=== PATIENT | female | born 1995 | race Two or more races ===

== ENCOUNTER 2024-09-12 16:19 | Inpatient (IN) | payer OTHER ==
[~2024-09-12] VITALS: Ht 167.6 cm; Wt 77.4 kg
--- NOTE | 2024-09-12 16:38 | ED.PDOC ---
GI ASSESSMENT HPI Comments HPI: Poor Historian. 28y F who presents to the ED for chief complaint of abdominal pain. Pt states she started having diffuse abdominal pain 1 days prior after she ate burrito. Pt states the pain is dull, constant, with no associated exacerbating or relieving factors. Pt otherwise denies any associated symptoms. Pt denies any other symptoms at this time. Vitals: temp: 98.0 RR: 16 02 sat: 100% on RA heart rate: 89 BP: 112/32 PMH: denies PSH: , tummy tuck social history: denies tobacco use, denies ETOH use, denies drug use medications: unknown allergies: nkda REVIEW OF SYSTEMS: CONSTITUTIONAL: Denies acute: fever, diaphoresis, chills, generalized weakness. HEAD: Denies acute: headache, photophobia Eyes: Denies acute: Double vision, vision loss, eye pain, eye discharge. EARS: Denies acute: tinnitus, hearing loss, ear discharge, ear pain, THROAT: Denies acute: sore throat, swelling, difficulty swallowing , pain with sw allowing, change in voice. NECK: Denies acute: neck pain, neck swelling, stiff neck. HEART: Denies acute : chest pain, palpitations, LUNGS: Denies acute: SOB, wheezing, cough, hemoptysis ABDOMEN: Denies acute: , Nausea, Vomiting, diarrhea, melena , hematemesis, hematochezia SKIN: Denies acute: rash, redness, lesions, itchiness. EXTREMITIES: Denies acute: calf pain, numbness, tingling, weakness, denies pain in extremity. Denies acute: Low back pain. Neuro: Denies acute: focal neurological deficit, motor or sensory focal neurological deficit, tremors, seizure like activity, confusion, dizziness, change in mental status, loss of bowel or bladder function, cauda equina like symptoms. : Denies acute: dysuria, hematuria, flank pain, increase in urinary frequency. PSYCH: Denies acute: hallucination, suicidal ideation, homicidal ideation. FEMALE: Denies acute: abnormal vaginal bleeding, foul odor, unusual discharge. PHYSICAL EXAM: General: no acute distress, awake and alert. Head: normocephalic, atraumatic. Neck: supple, trachea is midline, no swelling. Throat: Normal phonation. Eyes:, no erythema, no purulent discharge, no proptosis, no icterus. Heart: regular rate, regular rhythm, no significant murmur appreciated. Lungs: no apparent respiratory distress, Able to speak in full sentences. No wheezing, no rhonchi, no crackles. No stridors Clear to auscultation bilaterally. Abdomen: Periumbilical tender to palpation, non distended, soft, no guarding, no rebound, + bowel sounds. Neuro: Awake, Alert, oriented to name, self, situation, follows commands GCS=15. Speech is normal. Skin: no petechia, no purpura, no cyanosis, non-pale, not jaundice. Lower extremities: --no - Pitting edema no deformity, no focal swelling, no calf TTP. Makes eye contact. moves all four extremities. Face: no apparent facial droop. No CVA tenderness to percussion bilaterally. Ambulating in the ED independently. No nuchal rigidity, Kernig's sign, Brudzinski's sign, no meningeal signs. 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 Was a procedure done?: No GI differential Dx Differential Diagnosis: Other (DDX include Diverticulitis, colitis, gastroenteritis, acute abdomen, SBO, enteritis, constipation, volvulus, appendicitis, Gallbladder disease, choledocolithiasis, ascending cholangitis, pancreatitis, intraAbdominal mass/neoplasm, hepatitis, UTI, pylonephritis, kidney stone, aneurysm, dissection, Inflammatory bowel disease, gastroparesis, ischemic bowel, ovarian torsion, ovarian cyst/mass, tubo-ovarian abscess, , ectopic , PID, STD.) X-Ray, Labs, Meds, VS Vital Signs Date Time Temp Pulse Resp B/P (MAP) Pulse Ox O2 Delivery O2 Flow Rate FiO2 09/12/24 20:36 98.1 82 16 124/50 (74) 98 98.1 09/12/24 16:40 98.0 89 16 112/32 (58) 100 Lab Test 09/12/24 17:02 09/12/24 17:01 09/12/24 16:49 Range/Units Lactic Acid Level 1.2 0.4-2.0 mmol/L White Blood Count 13.9 H 4.4-10.8 10^3/uL Red Blood Count 4.49 4.0-5.20 10^6/uL Hemoglobin 14.2 12.2-16.2 g/dL Hematocrit 40.7 36.0-46.0 % Mean Corpuscular Volume 90.5 80.0-100.0 fL Mean Corpuscular Hemoglobin 31.6 28.0-32.0 pg Mean Corpuscular Hemoglobin Concent 34.9 32.0-36.0 g/dL Red Cell Distribution Width 12.6 11.8-14.3 % Platelet Count 292 140-450 10^3/uL Mean Platelet Volume 8.2 6.9-10.8 fL Neutrophils (%) (Auto) 72.3 37.0-80.0 % Lymphocytes (%) (Auto) 18.8 10.0-50.0 % Monocytes (%) (Auto) 6.5 0.0-12.0 % Eosinophils (%) (Auto) 1.7 0.0-7.0 % Basophils (%) (Auto) 0.7 0.0-2.0 % Neutrophils # (Auto) 10.0 H 1.6-8.6 10 ^3/uL Lymphocytes # (Auto) 2.6 0.4-5.4 10 ^3/uL Monocytes # (Auto) 0.9 0-1.3 10 ^3/uL Eosinophils # (Auto) 0.2 0-0.8 10 ^3/uL Basophils # (Auto) 0.1 0-0.2 10 ^3/uL Nucleated Red Blood Cells 0.0 % Sodium Level 144 136-145 mmol/L Potassium Level 3.8 3.5-5.1 mmol/L Chloride Level 107 98-107 mmol/L Carbon Dioxide Level 30 20-31 mmol/L Anion Gap 7 5-15 Blood Urea Nitrogen 14 9-23 mg/dL Creatinine 0.93 0.550-1.02 mg/dL Glomerular Filtration Rate Calc 86 >90 mL/min BUN/Creatinine Ratio 15.1 10.0-20.0 Serum Glucose 74 74-106 mg/dL Calcium Level 10.4 8.7-10.4 mg/dL Total Bilirubin 0.9 0.2-1.0 mg/dL Aspartate Amino Transferase (AST) 15 13-40 U/L Alanine Aminotransferase (ALT) 17 7-40 U/L Alkaline Phosphatase 69 46-116 U/L Total Protein 6.8 5.7-8.2 g/dL Albumin 4.6 3.2-4.8 g/dL Lipase 40 12-53 U/L Beta HCG, Quantitative 0.2 L 1.5-4.2 mIU/mL Urine Color Yellow Yellow Urine Clarity Clear Clear Urine pH 5.5 5.0-9.0 Urine Specific [place] 1.041 H 1.001-1.035 Urine Protein 1+ H Negative Urine Ketones Trace Negative Urine Blood Negative Negative /uL Urine Nitrite Negative Negative Urine Bilirubin Negative Negative Urine Urobilinogen Normal Negative mg/dL Urine Leukocyte Esterase Negative Negative /uL Urine RBC 1 0 - 4 /hpf Urine WBC 1 0 - 5 /hpf Urine Squamous Epithelial Cells Few <5 /hpf Urine Bacteria None seen None Seen /hpf Urine Mucus Few None Seen Urine Glucose Normal Normal mg/dL [place] [id number] Ph: [phone] DIAGNOSTIC IMAGING Diagnostic Imaging Report : [id number] Signed PATIENT: ADRIAN CORTEZ ACCT: [id number] UNIT: [id number] : 1995 LOC: ER ROOM / BED: / AGE / SEX: 28 / F ADM STATUS: REG ER SERVICE [id number] ORDERING PHYSICIAN: DANNA MELENDEZ DO PROCEDURE(s): ABPL - CT AB PEL WO CON-NO ORAL OR IV REASON: ABD PAIN ORDER NUMBER(s): [id number], ACCESSION NUMBER(s): [id number] Exam: CT CT AB PEL WO CON-NO ORAL OR IV History: ABD PAIN Comparison Study: None available at time of dictation. TECHNIQUE: Multidetector CT of the abdomen was performed from lung bases to pubic symphysis. Imaging was performed without IV contrast. Axial, coronal and sagittal multiplanar reformats were obtained from the axial data set by the technologist. Radiation Dose Information: CT Dose: CTDI volume is 9.35 mGy. Dose-length product is 502.38 mGy*cm FINDINGS: Evaluation of solid organs is limited due to lack of intravenous contrast use. Findings: Lung Bases: No acute or significant lung base finding. Normal heart size. No pleural or pericardial effusion. Liver: The liver is normal in size. No focal lesions. Gallbladder and Biliary Tree: Unremarkable Spleen: Unremarkable Pancreas: The pancreas is grossly normal in appearance. Adrenal Glands: Unremarkable Kidneys: Kidneys are grossly normal without calculi or hydronephrosis. Bladder: Grossly unremarkable for degree of distention. Bowel: The stomach is grossly normal in appearance. Small bowel and colon are normal in caliber and distribution. Wall thickening of the appendix, which is dilated to 1.0 cm, with periappendiceal inflammatory reaction. Ascites: Absent Lymphadenopathy: No mesenteric, retroperitoneal or periportal lymphadenopathy. Abdominal Wall and Mesentery: Unremarkable. Vasculature: The visualized abdominal aorta is normal in size and caliber. Evaluation of abdominal and pelvic vessels is limited due to lack of intravenous contrast. Pelvic Organs: Cystic structure measuring 2.7 cm in the region of the cervix. Musculoskeletal: No aggressive focal bony lesions, acute fractures or dislocation. Soft tissues: Unremarkable IMPRESSION: 1. Acute appendicitis. No definite large perforation or abscess formation at this time, though evaluation is limited in the absence of IV contrast. 2. Cystic structure measuring 2.7 cm in the region of the cervix, likely nabothian cyst. 3. Radiation optimization: All CT scans at this facility use at least one of these dose optimization techniques: automated exposure control mA and/or kV adj ustment per patient size (includes targeted exams where dose is matched to clinical indication) or iterative reconstruction. HS:Y ATED BY: AJ TREVIÑO DO DICTATED DATE/TIME: 09/12/241826 SIGNED BY: AJ TREVIÑO DO SIGNED DATE/TIME: 09/12/241826 CC: Time of 1ST Reevaluation: 18:56 (The case was discussed with the general surgery team (HPI, physical exam, labs and diagnostic tests that were available at the time of disposition, ED course, treatment plan) on the phone. They agreed to follow the patient in consult. No further recommendations. dr. Haji) Reevaluation 1ST: Improved Consultation: Surgery Patient Education/Counseling: Diagnosis, Treatment Family Education/Counseling: No Family Present Comments Patient presented with the above HPI.---abdominal pain in female---workup was initiated. patient was found with the above mentioned diagnosis. Patient was given: Zosyn, fluids, Patient ED course and VS have been stabilized. Patient has been reassessed in the ED and remained in a stable condition. Pertinent incidental findings were discussed with the patient and/or family. Patient/family voices understanding and is agreeable with plan. Patient has been observed in the ED adequate length of time to insure improvement/stability. General surgery was consulted patient was admitted to the medicine team for further evaluation and treatment of their presentation. All the reports of any imaging studies that were ordered by myself were reviewed by myself. Departure 1 Departure Time of Disposition: 18:33 Impression: Primary Impression: Acute appendicitis Additional Impression: Leukocytosis Disposition: ADMITTED INPATIENT Admit to: Tele Condition: Guarded Discharged With: Self Critical Care Note Critical Care Time?: No I personally scribed for DANNA MELENDEZ DO ([email or web address]) on 09/12/24 at 16:38. Electronically submitted by Victorino Weaver ([email or web address]). I personally scribed for DANNA MELENDEZ DO ([email or web address]) on 09/12/24 at 16:56. Electronically submitted by Victorino Weaver ([email or web address]). I personally scribed for DANNA MELENDEZ DO ([email or web address]) on 09/12/24 at 18:59. Electronically submitted by Victorino Weaver ([employer]). DANNA MELENDEZ DO Sep 12, 2024 16:38
[2024-09-12 16:51] LABS: Urine Bacteria None Seen /hpf (None Seen)
[2024-09-12 17:12] LABS: Urine Blood Negative /uL (Negative); Urine Clarity Clear (Clear); Urine Color Yellow (Yellow); Urine Mucus FEW (None Seen); Urine Protein, UAD 1+ (Negative); Urine Specific Gravity 1.041 (1.001-1.035); Urine Urobilinogen Normal (Negative); Urine WBC 1 /hpf (0 - 5); Urine pH 5.5 (5.0-9.0)
[2024-09-12 17:28] LABS: Basophils # (auto) 0.1 10 ^3/uL (0-0.2); Basophils % (auto) 0.7 % (0.0-2.0); Eosinophils # (auto) 0.2 10 ^3/uL (0-0.8); Eosinophils % (auto) 1.7 % (0.0-7.0); Hematocrit 40.7 % (36.0-46.0); Hemoglobin 14.2 g/dL (12.2-16.2); Lymphocytes # (auto) 2.6 10 ^3/uL (0.4-5.4); Lymphocytes % (auto) 18.8 % (10.0-50.0); Mean Corpuscular Hemoglobin 31.6 pg (28.0-32.0); Mean Corpuscular Hgb Conc. 34.9 g/dL (32.0-36.0); Mean Corpuscular Volume 90.5 fL (80.0-100.0); Monocytes # (auto) 0.9 10 ^3/uL (0-1.3); Monocytes % (auto) 6.5 % (0.0-12.0); Neutrophils % (auto) 72.3 % (37.0-80.0); Platelet Count (auto) 292 10^3/uL (140-450); Red Blood Cells 4.49 10^6/uL (4.0-5.20); Red Cell Distribution Width 12.6 % (11.8-14.3); White Blood Cell 13.9 10^3/uL (4.4-10.8)
[2024-09-12 17:41] LABS: Alanine Aminotransferase 17 U/L (7-40); Albumin 4.6 g/dL (3.2-4.8); Alkaline Phosphatase 69 U/L (46-116); Anion Gap 7 (5-15); Aspartate Aminotransferase 15 U/L (13-40); BUN/Creatinine Ratio 15.1 (10.0-20.0); Blood Urea Nitrogen 14 mg/dL (9-23); Calcium 10.4 mg/dL (8.7-10.4); Carbon Dioxide 30 mmol/L (20-31); Chloride 107 mmol/L (98-107); Glucose 74 mg/dL (74-106); Lipase 40 U/L (12-53); Potassium 3.8 mmol/L (3.5-5.1); Sodium 144 mmol/L (136-145)
[2024-09-12 17:42] LABS: Bilirubin, Total 0.9 mg/dL (0.2-1.0); Total Protein 6.8 g/dL (5.7-8.2)
--- NOTE | 2024-09-12 18:31 | DVH ---
Exam: CT CT AB PEL WO CON-NO ORAL OR IV History: ABD PAIN Comparison Study: None available at time of dictation. TECHNIQUE: Multidetector CT of the abdomen was performed from lung bases to pubic symphysis. Imaging was performed without IV contrast. Axial, coronal and sagittal multiplanar reformats were obtained fr om the axial data set by the technologist. Radiation Dose Information: CT Dose: CTDI volume is 9.35 mGy. Dose-length product is 502.38 mGy*cm FINDINGS: Evaluation of solid organs is limited due to lack of intravenous contrast use. Findings: Lung Bases: No acute or significant lung base finding. Normal heart size. No pleural or pericardial effusion. Liver: The liver is normal in size. No focal lesions. Gallbladder and Biliary Tree: Unremarkable Spleen: Unremarkable Pancreas: The pancreas is grossly normal in appearance. Adrenal Glands: Unremarkable Kidneys: Kidneys are grossly normal without calculi or hydronephrosis. Bladder: Grossly unremarkable for degree of distention. Bowel: The stomach is grossly normal in appearance. Small bowel and colon are normal in caliber and d istribution. Wall thickening of the appendix, which is dilated to 1.0 cm, with periappendiceal infla mmatory reaction. Ascites: Absent Lymphadenopathy: No mesenteric, retroperitoneal or periportal lymphadenopathy. Abdominal Wall and Mesentery: Unremarkable. Vasculature: The visualized abdominal aorta is normal in size and caliber. Evaluation of abdominal a nd pelvic vessels is limited due to lack of intravenous contrast. Pelvic Organs: Cystic structure measuring 2.7 cm in the region of the cervix. Musculoskeletal: No aggressive focal bony lesions, acute fractures or dislocation. Soft tissues: Unremarkable IMPRESSION: 1. Acute appendicitis. No definite large perforation or abscess formation at this time, though evalua tion is limited in the absence of IV contrast. 2. Cystic structure measuring 2.7 cm in the region of the cervix, likely nabothian cyst. 3. Radiation optimization: All CT scans at this facility use at least one of these dose optimization techniques: automated exposure control mA and/or kV adjustment per patient size (includes targeted e xams where dose is matched to clinical indication) or iterative reconstruction. HS:Y
[2024-09-12] MEDS ORDERED: NITROGLYCERIN 0.4 MG SL TAB SL PRN (20:45)
[2024-09-12] MEDS ORDERED: MORPHINE SULFATE INJ 2 MG/ml SYRG IV PRN (20:45)
[2024-09-12] MEDS ORDERED: ACETAMINOPHEN 325 MG TAB PO PRN (20:45)
[2024-09-13] VITALS (7 sets, daily range): BP systolic 104–110; BP diastolic 51–70; PULSE 54–74; RESP 15–18; TEMP 97.3–98.5; O2SAT 96–100
--- NOTE | 2024-09-13 00:22 | DVHHPRES ---
History of Present Illness Resident Creating Document: [place] RESIDENT Reason for Visit: acute abdominal pain History of Present Illness The patient is a 28-year-old female with no significant past medical history who presented to the emergency department with acute abdominal pain. The pain began one day prior and initially was localized to the mid-abdomen but later migrated to the lower abdomen. The pain is constant, rated as 8/10 in intensity, and worsens with straining. She denies associated symptoms such as nausea, vomiting, diarrhea, fever, chest pain, palpitations, or changes in appetite. She has had normal bowel movements and urine output, and there are no signs of a urinary tract infection. CT showed acute appendicitis, ceftriaxone and flagyl IV were started. Surgery consult is pending Past Medical History No chronic medical conditions reports Past Surgical History section Ectopic Hernia repair Family History: None Smoke: No ALCOHOL: occassional Drugs: None Lives: Alone Review of Systems Review of Systems Constitutional: No: Fever, Chills, Sweats, Weakness, Malaise, Other Eyes: No: Pain, Vision change, Conjunctivae inflammation, Eyelid inflammation, Other, Redness ENT: No: Ear pain, Ear discharge, Nose pain, Nose discharge, Nose congestion, Mouth pain, Mouth swelling, Throat pain, Throat swelling, Other Respiratory: No Wheezing, Hemoptysis, Pleuritic Pain, Sputum, Wheezing, Other Cardiovascular: No: Chest Pain, Palpitations, Orthopnea, Paroxysmal Noc. Dyspnea, Edema, Lt Headedness, Other Gastrointestinal: yes: Positive for mild lower abdominal pain, she denies nausea vomiting diarrhea chest pain palpitations or changes in appetite Musculoskeletal: No: other, neck pain, shoulder pain, arm pain, back pain, hand pain, leg pain, foot pain Neurological:; No: Weakness, Numbness, Incoordination, Change in speech, Confusion, Seizures Allergies: Coded Allergies: NO KNOWN ALLERGIES (Unverified , 09/12/24) Medications Current Medications Medications Dose Ordered Sig/Victoria Route Start Time Stop Time Status Last Admin Dose Admin Sodium Chloride 1,000 ml @ 120 mls/hr Q8H20M IV 09/12/24 20:45 Acetaminophen 650 mg Q6HP PRN PO 09/12/24 20:45 Morphine Sulfate 2 mg Q4HPRN PRN IV 09/12/24 20:45 Nitroglycerin 0.4 mg Q5MINP PRN SL 09/12/24 20:45 Morphine Sulfate 2 mg Q30M PRN IV 09/12/24 20:45 Metronidazole 100 ml @ 100 mls/hr Q8HR IV 09/12/24 22:00 Ceftriaxone Sodium/Dextrose 50 ml @ 50 mls/hr DAILY IV 09/12/24 23:00 Exam Vital Signs Vital Signs Date Time Temp Pulse Resp B/P (MAP) Pulse Ox O2 Delivery O2 Flow Rate FiO2 09/12/24 20:36 98.1 82 16 124/50 (74) 98 98.1 Exam Examination General Appearance: Alert, Oriented X3, Cooperative, No acute distress HEENT: EOMI Respiratory: Clear to auscultation, Normal air movement Cardiovascular: Regular rate, Normal S1, Normal S2 Abdominal: Tenderness to palpation in the lower abdomen without rebound or guarding. No palpable masses Extremities: No cyanosis, No edema, Normal pulses, No tenderness/swelling Skin: No rashes, No breakdown Neuro: Normal gait, Normal speech, Strength at 5/5 X4 ext, Normal tone, Sensation intact, Cranial nerves 3-12 NL, Reflexes 2+ Psych/Mental Status: Mental status NL, Mood NL Labs/Xrays Labs Test 09/12/24 17:02 09/12/24 17:01 09/12/24 16:49 Range/Units Lactic Acid Level 1.2 0.4-2.0 mmol/L White Blood Count 13.9 H 4.4-10.8 10^3/uL Red Blood Count 4.49 4.0-5.20 10^6/uL Hemoglobin 14.2 12.2-16.2 g/dL Hematocrit 40.7 36.0-46.0 % Mean Corpuscular Volume 90.5 80.0-100.0 fL Mean Corpuscular Hemoglobin 31.6 28.0-32.0 pg Mean Corpuscular Hemoglobin Concent 34.9 32.0-36.0 g/dL Red Cell Distribution Width 12.6 11.8-14.3 % Platelet Count 292 140-450 10^3/uL Mean Platelet Volume 8.2 6.9-10.8 fL Neutrophils (%) (Auto) 72.3 37.0-80.0 % Lymphocytes (%) (Auto) 18.8 10.0-50.0 % Monocytes (%) (Auto) 6.5 0.0-12.0 % Eosinophils (%) (Auto) 1.7 0.0-7.0 % Basophils (%) (Auto) 0.7 0.0-2.0 % Neutrophils # (Auto) 10.0 H 1.6-8.6 10 ^3/uL Lymphocytes # (Auto) 2.6 0.4-5.4 10 ^3/uL Monocytes # (Auto) 0.9 0-1.3 10 ^3/uL Eosinophils # (Auto) 0.2 0-0.8 10 ^3/uL Basophils # (Auto) 0.1 0-0.2 10 ^3/uL Nucleated Red Blood Cells 0.0 % Sodium Level 144 136-145 mmol/L Potassium Level 3.8 3.5-5.1 mmol/L Chloride Level 107 98-107 mmol/L Carbon Dioxide Level 30 20-31 mmol/L Anion Gap 7 5-15 Blood Urea Nitrogen 14 9-23 mg/dL Creatinine 0.93 0.550-1.02 mg/dL Glomerular Filtration Rate Calc 86 >90 mL/min BUN/Creatinine Ratio 15.1 10.0-20.0 Serum Glucose 74 74-106 mg/dL Calcium Level 10.4 8.7-10.4 mg/dL Total Bilirubin 0.9 0.2-1.0 mg/dL Aspartate Amino Transferase (AST) 15 13-40 U/L Alanine Aminotransferase (ALT) 17 7-40 U/L Alkaline Phosphatase 69 46-116 U/L Total Protein 6.8 5.7-8.2 g/dL Albumin 4.6 3.2-4.8 g/dL Lipase 40 12-53 U/L Beta HCG, Quantitative 0.2 L 1.5-4.2 mIU/mL Urine Color Yellow Yellow Urine Clarity Clear Clear Urine pH 5.5 5.0-9.0 Urine Specific [place] 1.041 H 1.001-1.035 Urine Protein 1+ H Negative Urine Ketones Trace Negative Urine Blood Negative Negative /uL Urine Nitrite Negative Negative Urine Bilirubin Negative Negative Urine Urobilinogen Normal Negative mg/dL Urine Leukocyte Esterase Negative Negative /uL Urine RBC 1 0 - 4 /hpf Urine WBC 1 0 - 5 /hpf Urine Squamous Epithelial Cells Few <5 /hpf Urine Bacteria None seen None Seen /hpf Urine Mucus Few None Seen Urine Glucose Normal Normal mg/dL Assessment/Plan Assessment/Plan Acute abdominal pain due to acute appendicitis based on CT scan -ceftriaxone 2 g IV -Flagyl 500 mg q.8 hours IV -surgical consult, pending -IV fluids normal saline -morphine p.r.n. -NPO Cystic structure measuring 2.7 cm in the region of the cervix, likely nabothian cyst. -monitor -follow-up with OBGYN Overweight BMI 28.2 Lifestyle modification counseling, encouraged improving dietary habits and physical activity Case discussed with Dr. Ferrara Goals of care discussed with the patient for 42 minutes Code status: Full code Plan discussed with: Patient My Orders Orders - [place] Procedure Category Date Status Time Admit ADMIT 09/12/24 Transmitted 20:39 Allergies CHANDLER 09/12/24 In Process 20:39 Code Status CODE 09/12/24 Transmitted 20:39 Sodium Chloride 0.9% PHA 09/12/24 In Process 20:45 Complete Blood Count LAB 09/13/24 Logged 04:00 Npo (Nothing By DIET 09/13/24 Transmitted Mouth) Diet Breakfast Acetaminophen Tablet PHA 09/12/24 In Process (Tylenol Tablet) 20:45 Morphine Sulfate PHA 09/12/24 In Process Injection 20:45 Nitroglycerin PHA 09/12/24 In Process Sublingual (Ntrostat 20:45 Morphine Sulfate PHA 09/12/24 In Process Injection 20:45 Oxygen By Nasal RT 09/12/24 Transmitted Cannula 20:39 Stat Ekg For Chest [facility]ANNER 09/12/24 In Process Pain 20:39 Notify Md Of Changes BAN[facility] 09/12/24 In Process From Base 20:39 Artillery Or [employer] 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
[2024-09-13] MEDS: D5W/SOD CHLO 0.9% 1,000 ML IV SCH (01:00)
[2024-09-13] MEDS: PIPERACILLIN-TAZOB 3.375GM 100 ML IV ONE (01:50)
[2024-09-13] MEDS: MORPHINE SULFATE INJ 2 MG/ml SYRG IV PRN (01:52)
[2024-09-13] MEDS: SODIUM CHLORIDE 0.9% 1,000 ML IV ONE (02:01)
[2024-09-13 03:13] LABS: Basophils # (auto) 0.1 10 ^3/uL (0-0.2); Basophils % (auto) 0.8 % (0.0-2.0); Eosinophils # (auto) 0.4 10 ^3/uL (0-0.8); Eosinophils % (auto) 3.7 % (0.0-7.0); Hematocrit 37.8 % (36.0-46.0); Hemoglobin 13.1 g/dL (12.2-16.2); Lymphocytes # (auto) 2.9 10 ^3/uL (0.4-5.4); Lymphocytes % (auto) 29.1 % (10.0-50.0); Mean Corpuscular Hemoglobin 31.4 pg (28.0-32.0); Mean Corpuscular Hgb Conc. 34.6 g/dL (32.0-36.0); Mean Corpuscular Volume 90.6 fL (80.0-100.0); Monocytes # (auto) 0.7 10 ^3/uL (0-1.3); Monocytes % (auto) 7.2 % (0.0-12.0); Neutrophils # (auto) 5.8 10 ^3/uL (1.6-8.6); Neutrophils % (auto) 59.2 % (37.0-80.0); Platelet Count (auto) 256 10^3/uL (140-450); Red Blood Cells 4.17 10^6/uL (4.0-5.20); Red Cell Distribution Width 12.9 % (11.8-14.3); White Blood Cell 9.8 10^3/uL (4.4-10.8)
[2024-09-13] MEDS: cefTRIAXone 2GM/50ML D5W 50 ML IV SCH (03:23)
[2024-09-13 03:24] LABS: Chloride 110 mmol/L (98-107); Potassium 3.5 mmol/L (3.5-5.1); Sodium 143 mmol/L (136-145)
[2024-09-13 03:25] LABS: Anion Gap 7 (5-15); Calcium 9.5 mg/dL (8.7-10.4); Carbon Dioxide 26 mmol/L (20-31)
[2024-09-13 03:29] LABS: INR 1.11 (0.9-1.15); Prothrombin Time 11.7 sec (9.3-11.8)
[2024-09-13 03:30] LABS: BUN/Creatinine Ratio 14.9 (10.0-20.0); Blood Urea Nitrogen 13 mg/dL (9-23); Glucose 94 mg/dL (74-106)
[2024-09-13] MEDS: SODIUM CHLORIDE 0.9% 1,000 ML IV SCH (03:32)
[2024-09-13] MEDS: metroNIDAZOLE 500MG/100ML 100 ML IV SCH ×2 (03:33→15:20)
--- NOTE | 2024-09-13 04:16 | DVH ---
EXAM: CT HEAD WITHOUT CONTRAST INDICATION: visual disturbance TECHNIQUE: CT of the head without intravenous contrast. Coronal and sagittal reformatted images are submitted. Radiation Dose : 1. Head: CT Dose: CTDI volume is 61.02 mGy. Dose-length product is 977.99 mGy*cm The dose indicators for CT are the volume Computed Tomography (CT) Dose Index (CTDIvol) and the Dose Length Product (DLP), and are measured in units of mGy and mGy-cm, respectively. These indicators are not patient dose, but values generated from the CT scanner acquisition factors. The report includes radiation exposure data for exposures received during this examination. All CT scans at this medical facility are performed using dose modulation techniques as appropriate to a performed exam including the following: Automated exposure control was utilized; adjustment of the MA and/or KV according to patient size; and use of iterative reconstruction technique. COMPARISON: None FINDINGS: There is no evidence of acute intracranial hemorrhage, extra-axial collection, mass effect, midline s hift, herniation or hydrocephalus. The ventricles, sulci and cisterns are age appropriate. The harry-white differentiation is intact. The visualized paranasal sinuses and mastoid air cells are clear. No depressed calvarial fracture. The surrounding soft tissues are unremarkable. IMPRESSION: 1. No evidence of acute intracranial abnormality.
[2024-09-13] MEDS: metroNIDAZOLE 500MG/100ML 100 ML IV ONE (07:18)
[2024-09-13] MEDS ORDERED: PROPOFOL 10 MG/ML 20 ML IV ONE (07:27)
[2024-09-13] MEDS ORDERED: LIDOCAINE 1% INJ PF 5ML AMP ONE (07:27)
[2024-09-13] MEDS ORDERED: ROCURONIUM 10MG/ML 10ML VIAL IV ONE (07:27)
[2024-09-13] MEDS ORDERED: MIDAZOLAM HCL 2MG/2ML 2ml VIAL (1mg/ml) ONE (07:27)
[2024-09-13] MEDS ORDERED: HYDROmorphone HCL 2 MG/ML VL/or syr ONE (08:06)
[2024-09-13] MEDS ORDERED: ONDANSETRON HCL 4 MG/2 ML VIAL ONE (08:07)
[2024-09-13] MEDS ORDERED: METOCLOPRAMIDE HCL 5MG/ml INJ 2ml VIAL ONE (08:07)
[2024-09-13] MEDS ORDERED: KETOROLAC TROMETH 30 MG/ML 1ML VIAL ONE (08:07)
--- NOTE | 2024-09-13 08:19 | DVHINCON2 ---
DATE OF CONSULTATION: 09/13/2024 SURGICAL CONSULTATION HISTORY OF PRESENT ILLNESS: The patient is being evaluated for appendicitis. She is a 28-year-old female who came to the emergency room complaining of initially diffuse upper abdominal pain which migrated to the right lower quadrant, accompanied by anorexia. The patient had a previous and abdominoplasty. SOCIAL HISTORY: She is a nonsmoker, nondrinker, uses no drugs. ALLERGIES: She has no known medicinal allergies. REVIEW OF SYSTEMS: The patient's review of systems has been not contributory to the current problem. All 12 systems reviewed and the review is negative for any contributory information. PHYSICAL EXAMINATION: GENERAL: Well-developed, well-nourished female. HEENT: Pupils are equal, round and react to light equally. Sclerae nonicteric. Extraocular motion is intact. Uvula midline. Trachea midline. Carotids are full without bruits. Jugular veins are collapsed. HEART: Regular rate and rhythm without murmur or gallop. ABDOMEN: Tender in the right lower quadrant with rebound tenderness and guarding. BACK: The patient has no CVA tenderness. EXTREMITIES: No peripheral vascular insufficiency. No venous stasis. LABORATORY AND IMAGING DATA: On admission, her white count was 13.9, which is now corrected to 9.8. The patient had a slight left shift on admission, which is no longer present this morning. Her INR is 1.1 and PT is 11.7. Electrolytes are normal. Her bilirubin is normal. On imaging, she has a CT scan, which was done without contrast and it shows acute appendicitis without evidence of perforation or abscess formation. ASSESSMENT AND PLAN: The patient's physical examination, history and imaging are consistent with the diagnosis of acute suppurative appendicitis. Laparoscopic, possibly open appendectomy. Risks and potential complications were explained in detail. All questions were answered. MD MAEGAN Gutierrez TID: [id number] RECEIPT: [id number]
[2024-09-13] MEDS ORDERED: SUGAMMADEX 200mg/2ml Vial (100MG/ML) IV ONE (08:40)
[2024-09-13] MEDS ORDERED: cefTRIAXone 1GM/50ML D5W 50 ML IV SCH (09:00)
[2024-09-13] MEDS ORDERED: D5W/SOD CHL 0.45%/KCL 20MEQ 1,000 ML IV SCH (09:15)
[2024-09-13] MEDS: HYDROmorphone HCL 2 MG/ML VL/or syr IV ONE (09:15)
[2024-09-13] MEDS ORDERED: MORPHINE SULFATE 4 MG/ML SYR/VIAL IV PRN (09:15)
[2024-09-13] MEDS: PANTOPRAZOLE 40 MG/10 ML VIAL INJ IV SCH (10:00)
--- NOTE | 2024-09-13 11:04 | DVHPN2 ---
Progress Note - Dictate Date Seen: Sep 13, 2024 Medical Necessity Reason Pt with a Central, PICC or Fol: No vital signs Vital Sign Date Time Temp Pulse Resp B/P (MAP) Pulse Ox O2 Delivery O2 Flow Rate FiO2 09/13/24 09:40 Room Air 0 99 09/13/24 09:33 67 15 98/50 (66) 100 09/13/24 09:03 97.8 97.8 Total Intake and Output 09/12/24 09/12/24 09/13/24 15:00 23:00 07:00 Intake Total 1100 ml Balance 1100 ml medications Current Medications Medications Dose Ordered Sig/Victoria Route Start Time Stop Time Status Last Admin Dose Admin Sodium Chloride 1,000 ml @ 120 mls/hr Q8H20M IV 09/12/24 20:45 09/13/24 05:24 120 MLS/HR Acetaminophen 650 mg Q6HP PRN PO 09/12/24 20:45 Morphine Sulfate 2 mg Q4HPRN PRN IV 09/12/24 20:45 09/13/24 01:52 2 MG Nitroglycerin 0.4 mg Q5MINP PRN SL 09/12/24 20:45 Morphine Sulfate 2 mg Q30M PRN IV 09/12/24 20:45 Metronidazole 100 ml @ 100 mls/hr Q8HR IV 09/12/24 22:00 09/13/24 03:33 100 MLS/HR Ceftriaxone Sodium/Dextrose 50 ml @ 50 mls/hr DAILY IV 09/12/24 23:00 09/13/24 03:23 50 MLS/HR Potassium Chloride/Dextrose/ Sod Cl 1,000 ml @ 120 mls/hr Q8H20M IV 09/13/24 09:15 Cefazolin Sodium/ Dextrose 50 ml @ 50 mls/hr Q8HR IV 09/13/24 14:00 Metronidazole 100 ml @ 100 mls/hr Q8HR IV 09/13/24 14:00 Ondansetron HCl 4 mg Q4HPRN PRN IV 09/13/24 09:15 Pantoprazole Sodium 40 mg DAILY IV 09/13/24 10:00 objective General Appearance: alert, no distress HEENT: EOMI, PERRLA, normal external inspect of ears, no icterus, no nasal drainage Neck: no carotid bruit, no jugular venous distention (JVD), no lymphadenopathy Chest: normal thorax Respiratory: clear to auscultation, normal air movement Cardiovascular: regular rate and rhythm, no diastolic murmur, no jugular venous distention (JVD), no rub, no systolic murmur Abdominal: soft, no hepatomegaly, no mass, no splenomegaly, no tenderness Genitourinary: grossly normal external Musculoskeletal: no joint tenderness, no swelling Extremities: normal pulses, no calf tenderness, no clubbing, no cyanosis, no edema Skin: no bruising, no jaundice, no rash Neurological: alert, No focal deficit laboratory and microbiology Laboratory Tests 09/13/24 03:00 Test 09/13/24 03:00 Range/Units Serum Glucose 94 74-106 mg/dL Problem List 1. Abdominal Pain Pain meds, monitoring 2. Acute appendicitis Surgical consult 3. Cyst in Cervix OB outpatient follow-up 4. Leukocytosis Medication, monitoring Assessment/Plan Subjective: Patient is awake and alert. Objective: Patient had an appendectomy done by Dr. Dodd today. Patient is doing well. She is still NPO. Plan: Continue IV fluids, monitor daily labs, continue pain medication as needed, and advance diet when cleared by general surgery. Plan discussed with: Patient, Other INES CAMPBELL [employer]ORSHIP MANAGER Sep 13, 2024 11:04
[2024-09-13] MEDS: HYDROmorphone HCL 2 MG/ML VL/or syr IV PRN (11:50)
[2024-09-13 13:32] LABS: Amphetamine Screen, Urine Neg (NEGATIVE)
[2024-09-13 13:33] LABS: Barbiturate Scree,Urine Neg (NEGATIVE); Benzodiazephine Screen, Urine Neg (NEGATIVE); Cannabinoid Screen, Urine Neg (NEGATIVE); Cocaine Screen, Urine Neg (NEGATIVE); Opiate Scree,Urine Neg (NEGATIVE); Phencyclidine Screen, Urine Neg (NEGATIVE)
--- NOTE | 2024-09-13 13:38 | DVHOP ---
DATE OF SURGERY: 09/13/2024 PREOPERATIVE DIAGNOSIS: Appendicitis. POSTOPERATIVE DIAGNOSES: Adhesions and appendicitis. SURGEON: Dima Dodd MD ANESTHESIA: General endotracheal. ANESTHESIOLOGIST: Dr. Perez. PROCEDURE: Laparoscopy converted to open appendectomy. DESCRIPTION OF PROCEDURE: Under general endotracheal anesthesia with the patient's skin prepped and draped, supraumbilical incision was made and Veress needle attempted to be inserted, however, due to intraabdominal adhesions from previous surgery, it was impossible to gain safe access with a needle and therefore, the operation was converted to an open appendectomy. A midline incision was made and the abdomen was explored. There were dense adhesions between the omentum and bowel as well as the anterior abdominal wall. The appendix, however was found to be free was encountered to be inflamed and in the antececal position. It was grasped with a O'Kean forcep, placed on tension and traced to its confluence with the cecum at the base of the appendix. At the confluence with the cecum, it was crossclamped and divided with a REID stapler equipped with vascular mikey. The severed appendix was removed from the field. The right lower quadrant was profusely irrigated, irrigant was aspirated. Hemostasis was meticulously assured, found to be complete. At the termination of procedure, there was no evidence of ongoing bleeding. Laparotomy and needle counts sponges were all reported as accurate and the abdomen was then closed using #1 double stranded PDS suture and 2-0 Monocryl suture, Dermabond glue and Steri-Strips. The patient remained stable throughout the procedure, left the operating room following an accurate needle and sponge count. Her brother, Donovan was thoroughly informed at [phone]. Dima Dodd MD PF TID: [id number] RECEIPT: [id number]
[2024-09-13] MEDS: ceFAZolin 2 GM/D5W50ml 50 ML IV SCH (14:00)
[2024-09-13] MEDS: ONDANSETRON HCL 4 MG/2 ML VIAL IV PRN (18:29)
[2024-09-14] VITALS (9 sets, daily range): BP systolic 103–122; BP diastolic 49–65; PULSE 60–87; RESP 15–19; TEMP 98–99.4; O2SAT 96–99
[2024-09-14] MEDS: metroNIDAZOLE 500MG/100ML 100 ML IV SCH (01:46)
[2024-09-14 05:38] LABS: Basophils # (auto) 0 10 ^3/uL (0-0.2); Basophils % (auto) 0.3 % (0.0-2.0); Eosinophils # (auto) 0.1 10 ^3/uL (0-0.8); Hematocrit 35.3 % (36.0-46.0); Hemoglobin 12.2 g/dL (12.2-16.2); Lymphocytes # (auto) 2.4 10 ^3/uL (0.4-5.4); Lymphocytes % (auto) 18.6 % (10.0-50.0); Mean Corpuscular Hemoglobin 31.4 pg (28.0-32.0); Mean Corpuscular Hgb Conc. 34.4 g/dL (32.0-36.0); Mean Corpuscular Volume 91.1 fL (80.0-100.0); Monocytes % (auto) 7.5 % (0.0-12.0); Neutrophils # (auto) 9.3 10 ^3/uL (1.6-8.6); Neutrophils % (auto) 72.6 % (37.0-80.0); Platelet Count (auto) 239 10^3/uL (140-450); Red Blood Cells 3.88 10^6/uL (4.0-5.20); Red Cell Distribution Width 12.6 % (11.8-14.3); White Blood Cell 12.9 10^3/uL (4.4-10.8)
--- NOTE | 2024-09-14 10:42 | DVHPN2 ---
Progress Note - Dictate Date Seen: Sep 14, 2024 Medical Necessity Reason Pt with a Central, PICC or Fol: No vital signs Vital Sign Date Time Temp Pulse Resp B/P (MAP) Pulse Ox O2 Delivery O2 Flow Rate FiO2 09/14/24 08:58 99.0 60 16 104/62 (76) 96 99.0 09/14/24 08:16 Room Air* 0 21 Total Intake and Output 09/13/24 09/13/24 09/14/24 15:00 23:00 07:00 Intake Total 100 ml 0 ml Output Total 0 ml 0 ml Balance 100 ml 0 ml medications Current Medications Medications Dose Ordered Sig/Victoria Route Start Time Stop Time Status Last Admin Dose Admin Acetaminophen 650 mg Q6HP PRN PO 09/12/24 20:45 Morphine Sulfate 2 mg Q4HPRN PRN IV 09/12/24 20:45 09/13/24 19:02 2 MG Nitroglycerin 0.4 mg Q5MINP PRN SL 09/12/24 20:45 Morphine Sulfate 2 mg Q30M PRN IV 09/12/24 20:45 Ceftriaxone Sodium/Dextrose 50 ml @ 50 mls/hr DAILY IV 09/12/24 23:00 09/13/24 03:23 50 MLS/HR Cefazolin Sodium/ Dextrose 50 ml @ 50 mls/hr Q8HR IV 09/13/24 14:00 Ondansetron HCl 4 mg Q4HPRN PRN IV 09/13/24 09:15 09/13/24 18:29 4 MG Pantoprazole Sodium 40 mg DAILY IV 09/13/24 10:00 09/14/24 10:06 40 MG Dextrose/Sodium Chloride 1,000 ml @ 100 mls/hr Q10H IV 09/13/24 15:00 09/14/24 01:00 100 MLS/HR Metronidazole 100 ml @ 100 mls/hr Q8H IV 09/14/24 02:00 09/14/24 10:06 100 MLS/HR objective General Appearance: alert, no distress HEENT: EOMI, PERRLA, normal external inspect of ears, no icterus, no nasal drainage Neck: no carotid bruit, no jugular venous distention (JVD), no lymphadenopathy Chest: normal thorax Respiratory: clear to auscultation, normal air movement Cardiovascular: regular rate and rhythm, no diastolic murmur, no jugular venous distention (JVD), no rub, no systolic murmur Abdominal: soft, no hepatomegaly, no mass, no splenomegaly, no tenderness Genitourinary: grossly normal external Musculoskeletal: no joint tenderness, no swelling Extremities: normal pulses, no calf tenderness, no clubbing, no cyanosis, no edema Skin: no bruising, no jaundice, no rash Neurological: alert, No focal deficit laboratory and microbiology Laboratory Tests 09/14/24 05:14 09/13/24 03:00 Test 09/13/24 03:00 Range/Units Serum Glucose 94 74-106 mg/dL Problem List 1. Abdominal Pain Pain meds, monitoring 2. Acute appendicitis Surgical consult 3. Cyst in Cervix OB outpatient follow-up 4. Leukocytosis Medication, monitoring Assessment/Plan Subjective: Patient is awake and alert. Objective: Patient is status post appendectomy by Dr. Dodd. She is ambulating and passing gas however she states no bowel movement. Patient was seen by general surgery she was advanced to a clear liquid diet. Patient remains on Flagyl and Rocephin. Plan: Continue current treatment. Continue antibiotics. Repeat labs ordered for a.m. Patient to continue to ambulate. Possible DC tomorrow if diet is advanced and patient is cleared by surgeon. Plan discussed with: Patient, Other INES CAMPBELL NP Sep 14, 2024 10:42
--- NOTE | 2024-09-14 11:25 | DVHPN2 ---
Progress Note Date Seen: Sep 14, 2024 Medical Necessity Reason Pt with a Central, PICC or Fol: No Objective vital signs Vital Sign Date Time Temp Pulse Resp B/P (MAP) Pulse Ox O2 Delivery O2 Flow Rate FiO2 09/14/24 08:58 99.0 60 16 104/62 (76) 96 99.0 09/14/24 08:16 Room Air* 0 21 Total Intake and Output 09/13/24 09/13/24 09/14/24 15:00 23:00 07:00 Intake Total 100 ml 0 ml Output Total 0 ml 0 ml Balance 100 ml 0 ml medications Current Medications Medications Dose Ordered Sig/Victoria Route Start Time Stop Time Status Last Admin Dose Admin Acetaminophen 650 mg Q6HP PRN PO 09/12/24 20:45 Morphine Sulfate 2 mg Q4HPRN PRN IV 09/12/24 20:45 09/13/24 19:02 2 MG Nitroglycerin 0.4 mg Q5MINP PRN SL 09/12/24 20:45 Morphine Sulfate 2 mg Q30M PRN IV 09/12/24 20:45 Ceftriaxone Sodium/Dextrose 50 ml @ 50 mls/hr DAILY IV 09/12/24 23:00 09/13/24 03:23 50 MLS/HR Cefazolin Sodium/ Dextrose 50 ml @ 50 mls/hr Q8HR IV 09/13/24 14:00 Ondansetron HCl 4 mg Q4HPRN PRN IV 09/13/24 09:15 09/13/24 18:29 4 MG Pantoprazole Sodium 40 mg DAILY IV 09/13/24 10:00 09/14/24 10:06 40 MG Dextrose/Sodium Chloride 1,000 ml @ 100 mls/hr Q10H IV 09/13/24 15:00 09/14/24 01:00 100 MLS/HR Metronidazole 100 ml @ 100 mls/hr Q8H IV 09/14/24 02:00 09/14/24 10:06 100 MLS/HR laboratory and microbiology Laboratory Tests 09/14/24 05:14 09/13/24 03:00 Test 09/13/24 03:00 Range/Units Serum Glucose 94 74-106 mg/dL Problem List/Assessment/Plan Problem List/Assessment/Plan 09/14/24 awake, afebrile, normotensive,. ambulating, hungry, abdomen appropriately tender, wound clean and well approximated, start po, may DC in am tomorrow Plan discussed with: Patient TONY ARORA MD Sep 14, 2024 11:25
[2024-09-14] MEDS ORDERED: ACETAMINOPHEN/CODEINE#3 (300/30mg) TAB PO PRN ×2 (11:30)
[2024-09-15 01:00] VITALS: BP 109/68; PULSE 56; RESP 16; TEMP 99.3; O2SAT 96
[2024-09-15 05:00] VITALS: BP 103/56; PULSE 57; RESP 16; TEMP 98; O2SAT 97
[2024-09-15 08:00] VITALS: PULSE 67; RESP 15; O2SAT 98
[2024-09-15 08:59] VITALS: BP 102/52; PULSE 67; RESP 15; TEMP 97.6; O2SAT 98
--- NOTE | 2024-09-15 11:33 | DVHPN2 ---
Progress Note Date Seen: Sep 15, 2024 Medical Necessity Reason Pt with a Central, PICC or Fol: No Objective vital signs Vital Sign Date Time Temp Pulse Resp B/P (MAP) Pulse Ox O2 Delivery O2 Flow Rate FiO2 09/15/24 08:59 97.6 67 15 102/52 (69) 98 97.6 09/14/24 20:00 Room Air* 0 21 Total Intake and Output 09/14/24 09/14/24 09/15/24 15:00 23:00 07:00 Intake Total 0 ml 620 ml 1100 ml Balance 0 ml 620 ml 1100 ml medications Current Medications Medications Dose Ordered Sig/Victoria Route Start Time Stop Time Status Last Admin Dose Admin Acetaminophen 650 mg Q6HP PRN PO 09/12/24 20:45 Morphine Sulfate 2 mg Q4HPRN PRN IV 09/12/24 20:45 09/13/24 19:02 2 MG Nitroglycerin 0.4 mg Q5MINP PRN SL 09/12/24 20:45 Morphine Sulfate 2 mg Q30M PRN IV 09/12/24 20:45 Cefazolin Sodium/ Dextrose 50 ml @ 50 mls/hr Q8HR IV 09/13/24 14:00 09/15/24 06:02 50 MLS/HR Ondansetron HCl 4 mg Q4HPRN PRN IV 09/13/24 09:15 09/13/24 18:29 4 MG Pantoprazole Sodium 40 mg DAILY IV 09/13/24 10:00 09/15/24 10:08 40 MG Dextrose/Sodium Chloride 1,000 ml @ 100 mls/hr Q10H IV 09/13/24 15:00 09/15/24 07:46 100 MLS/HR Metronidazole 100 ml @ 100 mls/hr Q8H IV 09/14/24 02:00 09/15/24 10:08 100 MLS/HR Acetaminophen/ Codeine Phosphate 1 tab Q4HP PRN PO 09/14/24 11:30 UNV Acetaminophen/ Codeine Phosphate 1 tab Q4HP PRN PO 09/14/24 11:30 laboratory and microbiology Laboratory Tests 09/14/24 05:14 09/13/24 03:00 Test 09/13/24 03:00 Range/Units Serum Glucose 94 74-106 mg/dL Problem List/Assessment/Plan Problem List/Assessment/Plan 09/14/24 awake, afebrile, normotensive,. ambulating, hungry, abdomen appropriately tender, wound clean and well approximated, start po, may DC in am tomorrow 09/15/24 doing well, normal bowel and bladder function, wound clean and well approximated, abdomen appropriately tender, may be discharged with po antiobiotic for another 72 hours Plan discussed with: Patient TONY ARORA MD Sep 15, 2024 11:33
[2024-09-15 12:03] VITALS: BP 102/52; PULSE 67; RESP 15; TEMP 97.6; O2SAT 98
[2024-09-15] MEDS ORDERED: METR-344 PO (12:04)
--- NOTE | 2024-09-15 12:05 | DVHDS2 ---
Discharge Summary Date of Admission Sep 12, 2024 at 20:39 Date of Discharge: Sep 15, 2024 Admitting Diagnosis Appendicitis Labs/Diagnostic Data: Laboratory Results Test 09/14/24 05:14 09/13/24 03:00 09/12/24 17:02 09/12/24 17:01 White Blood Count 12.9 10^3/uL (4.4-10.8) Red Blood Count 3.88 10^6/uL (4.0-5.20) Hemoglobin 12.2 g/dL (12.2-16.2) Hematocrit 35.3 % (36.0-46.0) Mean Corpuscular Volume 91.1 fL (80.0-100.0) Mean Corpuscular Hemoglobin 31.4 pg (28.0-32.0) Mean Corpuscular Hemoglobin Concent 34.4 g/dL (32.0-36.0) Red Cell Distribution Width 12.6 % (11.8-14.3) Platelet Count 239 10^3/uL (140-450) Mean Platelet Volume 8.1 fL (6.9-10.8) Neutrophils (%) (Auto) 72.6 % (37.0-80.0) Lymphocytes (%) (Auto) 18.6 % (10.0-50.0) Monocytes (%) (Auto) 7.5 % (0.0-12.0) Eosinophils (%) (Auto) 1.0 % (0.0-7.0) Basophils (%) (Auto) 0.3 % (0.0-2.0) Neutrophils # (Auto) 9.3 10 ^3/uL (1.6-8.6) Lymphocytes # (Auto) 2.4 10 ^3/uL (0.4-5.4) Monocytes # (Auto) 1.0 10 ^3/uL (0-1.3) Eosinophils # (Auto) 0.1 10 ^3/uL (0-0.8) Basophils # (Auto) 0 10 ^3/uL (0-0.2) Nucleated Red Blood Cells 0.0 % Prothrombin Time 11.7 sec (9.3-11.8) Prothrombin Time INR 1.11 (0.9-1.15) Sodium Level 143 mmol/L (136-145) Potassium Level 3.5 mmol/L (3.5-5.1) Chloride Level 110 mmol/L (98-107) Carbon Dioxide Level 26 mmol/L (20-31) Anion Gap 7 (5-15) Blood Urea Nitrogen 13 mg/dL (9-23) Creatinine 0.87 mg/dL (0.550-1.02) Glomerular Filtration Rate Calc 94 mL/min (>90) BUN/Creatinine Ratio 14.9 (10.0-20.0) Serum Glucose 94 mg/dL (74-106) Calcium Level 9.5 mg/dL (8.7-10.4) Vitamin B12 Level 586 pg/mL (211-911) Thyroid Stimulating Hormone (TSH) 2.90 uIU/mL (0.55-4.78) Lactic Acid Level 1.2 mmol/L (0.4-2.0) Total Bilirubin 0.9 mg/dL (0.2-1.0) Aspartate Amino Transferase (AST) 15 U/L (13-40) Alanine Aminotransferase (ALT) 17 U/L (7-40) Alkaline Phosphatase 69 U/L (46-116) Total Protein 6.8 g/dL (5.7-8.2) Albumin 4.6 g/dL (3.2-4.8) Lipase 40 U/L (12-53) Beta HCG, Quantitative 0.2 mIU/mL (1.5-4.2) Test 09/12/24 16:49 Urine Color Yellow (Yellow) Urine Clarity Clear (Clear) Urine pH 5.5 (5.0-9.0) Urine Specific [place] 1.041 (1.001-1.035) Urine Protein 1+ (Negative) Urine Ketones Trace (Negative) Urine Blood Negative /uL (Negative) Urine Nitrite Negative (Negative) Urine Bilirubin Negative (Negative) Urine Urobilinogen Normal mg/dL (Negative) Urine Leukocyte Esterase Negative /uL (Negative) Urine RBC 1 /hpf (0 - 4) Urine WBC 1 /hpf (0 - 5) Urine Squamous Epithelial Cells Few /hpf (<5) Urine Bacteria None seen /hpf (None Seen) Urine Mucus Few (None Seen) Urine Glucose Normal mg/dL (Normal) Urine Test Negative (Negative) Urine Opiates Screen Neg (NEGATIVE) Urine Fentanyl Screen Neg (NEGATIVE) Urine Barbiturates Screen Neg (NEGATIVE) Urine Phencyclidine Screen Neg (NEGATIVE) Urine Amphetamines Screen Neg (NEGATIVE) Urine Benzodiazepines Screen Neg (NEGATIVE) Urine Cocaine Screen Neg (NEGATIVE) Urine Cannabinoids Screen Neg (NEGATIVE) Other Laboratory Tests 09/14/24 05:14 09/13/24 03:00 Brief Hx & Hospital Course: Patient was admitted for abdominal pain which is related to acute appendicitis patient also has leukocytosis related to acute appendicitis. Patient underwent appendectomy by Dr. Haji. Patient tolerated well and diet was advanced slowly and patient tolerated diet on day of discharge denied any abdominal pain nausea vomiting. Patient is to follow up with Dr. Haji within 10 days of discharge. Patient will be sent home on metronidazole x7 days. Patient is to follow up with PCP within one week of discharge Condition at Discharge: Fair Final Diagnosis/Problems List 1. Abdominal Pain 2. Acute appendicitis 3. Cyst in Cervix 4. Leukocytosis Discharge Disposition: Home Discharge Instruct/Medications Diet: Cardiac 2g Na,low cholest Activity: No Restrictions, As Tolerated Follow Up/Referral: FUP with luis antonio Within 2 weeks Discharge Statement: "Patient was advised to return to the ER or call 911 if any headaches, dizziness, shortness of breath, chest pain, abdominal pain, bleeding, fevers, or worsening of medical condition. Patient was counseled about treatment plan, medications, possible side effects, patientverbalized understanding. All questions were answered to the best of my ability. This discharge took greater then 30 minutes in planning, reviewing documentation, counseling the patient, and discussing with other team members." ASSESSMENT ASSESSMENT Assessment 1. Abdominal Pain 2. Acute appendicitis 3. Cyst in Cervix 4. Leukocytosis NIALL ALSTON Sep 15, 2024 12:05
[2024-09-15 13:13] VITALS: BP 119/64; PULSE 88; RESP 15; TEMP 97.7; O2SAT 97
[2024-09-17 12:06] LABS: Vitamin D 25-Hydroxy 26 ng/mL (.); Vitamin D-2 25-Hydroxy <1.0 ng/mL (.); Vitamin D-3 25-Hydroxy 25 ng/mL (.)
== END 2024-09-15 15:14 | disposition home or self-care (01) | DRG 234 ==
LOC: ER 16:19 → OVERFLOW 20:39 → EAST 09-13 14:13
PROVIDERS: ATTEND Nurse Practitioner
PROC: 0WJG4ZZ Inspection of Peritoneal Cavity, Percutaneous Endoscopic Approach (ICD-10-PCS; 2024-09-13)
PROC: 0DTJ0ZZ Resection of Appendix, Open Approach (ICD-10-PCS; principal; 2024-09-13 07:57)
DX: K35.80 Unspecified acute appendicitis (principal); R71.0 Precipitous drop in hematocrit; E66.3 Overweight; K66.0 Peritoneal adhesions (postprocedural) (postinfection); N88.8 Other specified noninflammatory disorders of cervix uteri; Z98.891 History of uterine scar from previous surgery; Z53.31 Laparoscopic surgical procedure converted to open procedure; Z68.28 Body mass index [BMI] 28.0-28.9, adult
CPT/HCPCS: 36415; 70450; 74176; 80048; 80053; 80307; 81001; 81025; 82306; 82607; 83605; 83690; 84443; 84702; 85025; 85610; 86850; 86900; 86901; G0378; J1885; J2250; J2405; J2470; J2543; J2704; J3490